=== PATIENT | female | born 1985 | race Two or more races ===

== ENCOUNTER 2017-09-11 05:27 | Emergency (ER) | payer BC, OTHER ==
[~2017-09-11] VITALS: Ht 170.2 cm; Wt 49.9 kg
--- NOTE | 2017-09-11 05:27 | NUR ---
PRE-SYNCOPE AT HOME, GOT "UNCONTROLLABLY SHAKY" WHEN SHE TRIED TO STAND. +ORTHOSTATIC VITAL SIGNS PER RA PRIOR TO ARRIVAL. PT IS ALERT AND ORIENTED WITH DAUGHTER AT BEDSIDE. WILL CONTINUE TO MONITOR FOR ANY CHANEGS DURING THE SHIFT.
--- NOTE | 2017-09-11 05:28 | NUR ---
ER AT BEDSIDE FOR EVAL
--- NOTE | 2017-09-11 06:13 | NUR ---
EKG AT BEDSIDE
--- NOTE | 2017-09-11 06:13 | NUR ---
LAB AT BEDSIDE FOR BLOOD DRAW
[2017-09-11 06:37] LABS: BASOPHILS # (AUTO) 0.1 /CMM (0.0-0.2); BASOPHILS % (AUTO) 0.5 % (0.0-2.0); EOSINOPHILS % (AUTO) 1.4 % (0.0-6.0); HEMATOCRIT 42 % (33-45); HEMOGLOBIN 13.8 g/dL (11.5-14.8); LYMPHOCYTES # (AUTO) 0.6 /CMM (0.8-4.8); LYMPHOCYTES % (AUTO) 3.2 % (20.0-44.0); MEAN CORPUSCULAR HEMOGLOBIN 30 PG (26.0-33.0); MEAN CORPUSCULAR HGB CONC 33 g/dl (31.0-36.0); MEAN CORPUSCULAR VOLUME 92 fL (82-100); MONOCYTES # (AUTO) 0.6 /CMM (0.1-1.30); MONOCYTES % (AUTO) 3.6 % (2.0-12.0); NEUTROPHILS # (AUTO) 15.6 /CMM (1.8-8.9); NEUTROPHILS % (AUTO) 91.3 % (43.0-81.0); PLATELET COUNT (AUTO) 245 /CMM (150-450); RED BLOOD CELL COUNT(AUTO) 4.57 MIL/uL (4.0-5.2); WHITE BLOOD COUNT (AUTO) 17.1 K/uL (4.3-11.0)
[2017-09-11 06:46] LABS: CALCIUM, SERUM 8.2 mg/dL (8.5-10.1); CREATININE 0.9 mg/dL (0.6-1.3)
--- NOTE | 2017-09-11 06:55 | NUR ---
US TECH AT BEDSIDE
[2017-09-11 07:01] LABS: APPEARANCE,URINE CLOUDY (CLEAR); BILIRUBIN,URINE NEGATIVE (NEGATIVE); BLOOD, URINE 2+ Ery/uL (NEGATIVE); COLOR,URINE YELLOW (YELLOW); KETONES,URINE TRACE (NEGATIVE); LEUKOCYTE ESTERASE ,URINE 2+ (NEGATIVE); NITRITE, URINE POSITIVE (NEGATIVE); PROTEIN,URINE 2+ mg/dl (NEGATIVE); UGLUCOSE NEGATIVE (NEGATIVE); UROBILINOGEN,URINE 0.2 EU/dL (0.2)
[2017-09-11] MEDS ORDERED: CEFUROXIME AXETIL 250 MG TABLET PO STA (07:24)
[2017-09-11] MEDS ORDERED: IBUPROFEN 600 MG TABLET PO ONE ×2 (07:28→07:30)
[2017-09-11 07:34] LABS: BACTERIA,URINE Moderate /HPF (None Seen); WBC,URINE TOO NUMEROUS TO COUN /HPF (0-3)
[2017-09-11 07:35] LABS: SQUAMOUS EPITHELIAL CELL,UR Moderate /HPF (None Seen)
[2017-09-11 08:48] VITALS: BP 119/70
--- NOTE | 2017-09-11 08:49 | NUR ---
Patient discharged to home in stable condition. Written and verbal after care instructions given. Patient verbalizes understanding of instruction.IV removed. Catheter intact and site benign. Pressure and 4x4 applied to site. No bleeding noted.
== END 2017-09-11 08:50 | disposition home or self-care (01) ==
LOC: ER 05:28
DX: N12 Tubulo-interstitial nephritis, not specified as acute or chronic (principal); Z60.2 Problems related to living alone; Z87.442 Personal history of urinary calculi
CPT/HCPCS: 36415; 74176; 76770; 80048; 81001; 84703; 85025; 87077; 87086; 87186; 93005; 99285; A4606; Z7610; 81000-TC